=== PATIENT | male | born 1960 | race Caucasian/White ===

== ENCOUNTER → 2017-01-17 | Outpatient (CLI) | payer BC ==
[~2017-01-17] VITALS: Ht 180.3 cm; Wt 104.0 kg
[~2017-01-17] MED LIST: DIOVAN 160MG160 MG PO
[2017-01-17 07:52] VITALS: BP 138/84; PULSE 66
[2017-01-17 09:16] VITALS: BP 137/84; PULSE 63
== END ==
LOC: COL.RAD 07:00
DX: M54.41 Lumbago with sciatica, right side (principal)
CPT/HCPCS: J3301

== ENCOUNTER → 2017-02-15 | Outpatient (CLI) | payer BC ==
[~2017-02-15] VITALS: Ht 180.3 cm; Wt 97.7 kg
[2017-02-15 11:53] VITALS: BP 127/78; PULSE 53
[2017-02-15 14:01] VITALS: BP 120/83; PULSE 51
== END ==
LOC: COL.RAD 11:31
DX: M54.31 Sciatica, right side (principal)
CPT/HCPCS: J3301

== ENCOUNTER → 2018-03-07 | Outpatient (CLI) | payer BC ==
[~2018-03-07] VITALS: Ht 180.3 cm; Wt 106.0 kg
[~2018-03-07] MED LIST changes: +BENICAR 20MG TA20 MG PO
[2018-03-07 12:00] VITALS: BP 145/89; PULSE 60
[2018-03-07 13:10] VITALS: BP 166/108; PULSE 63
[2018-03-07 13:17] VITALS: BP 152/100; PULSE 56
[2018-03-07 13:24] VITALS: BP 141/94; PULSE 59
== END ==
LOC: COL.RAD 02-27 13:00
DX: M54.41 Lumbago with sciatica, right side (principal)
CPT/HCPCS: J3301